=== PATIENT | male | born 1970 | race Caucasian/White ===

== ENCOUNTER 2024-12-08 13:03 | Inpatient (IN) | payer MEDICAID ==
[~2024-12-08] VITALS: Ht 170.2 cm; Wt 59.0 kg
[~2024-12-08 13:03] MED LIST: ONDA-97 GT
[2024-12-08 13:27] LABS: PLATELET COUNT (AUTO) 500 K/uL (150-450); RED BLOOD CELL COUNT(AUTO) 3.83 MIL/uL (4.5-6.0); RED CELL DISTRIBUTION WIDTH 19.2 % (11.5-15.0); WHITE BLOOD COUNT (AUTO) 14.1 K/uL (4.3-11.0)
[2024-12-08 13:38] LABS: CALCIUM, SERUM 10.6 mg/dL (8.5-10.1); CREATININE 0.6 mg/dL (0.6-1.3); SODIUM SERUM 149 mmol/L (136-145); UREA NITROGEN, BLOOD 25 mg/dL (7-18)
[2024-12-08 13:42] LABS: INR 1.1 (0.91-1.10)
[2024-12-08 13:45] LABS: ASPARTATE AMINOTRANSFERASE 24 U/L (15-37); TOTAL PROTEIN, SERUM 7.8 g/dL (6.4-8.2)
[2024-12-08 13:46] LABS: LACTIC ACID 3.6 mmol/L (0.4-2.0)
[2024-12-08] MEDS: IV NS 0.9% 1,000 ML BAG IV ONE (14:00)
[2024-12-08] MEDS: CEFEPIME 1 GM in IV D5W 50 ML IV ONE (14:15)
[2024-12-08] MEDS: VANCOMYCIN 1 GM in IV D5W 250 ML IV ONE (14:50)
[2024-12-08] MEDS ORDERED: ALBU2.5V11 IH (15:03)
[2024-12-08] MEDS ORDERED: NA P133E RC (15:03)
[2024-12-08] MEDS ORDERED: HEPA50008 SQ (15:03)
[2024-12-08] MEDS ORDERED: CLOP75TA15 GT (15:03)
[2024-12-08] MEDS ORDERED: ASCO500T10 GT (15:03)
[2024-12-08] MEDS ORDERED: METF-440 GT (15:03)
[2024-12-08] MEDS ORDERED: FAMO20TA8 GT (15:03)
[2024-12-08] MEDS ORDERED: MULT9LIQ6 GT (15:03)
[2024-12-08] MEDS ORDERED: MAGN400O6 GT (15:03)
[2024-12-08] MEDS ORDERED: AMIN30LI26 GT (15:03)
[2024-12-08] MEDS ORDERED: ATOR40TA GT (15:03)
[2024-12-08] MEDS ORDERED: ACET160L44 GT (15:03)
[2024-12-08 15:13] LABS: APPEARANCE,URINE CLEAR (CLEAR); BLOOD, URINE 3+ Ery/uL (NEGATIVE); LEUKOCYTE ESTERASE ,URINE 1+ (NEGATIVE); NITRITE, URINE NEGATIVE (NEGATIVE); UGLUCOSE NEGATIVE (NEGATIVE)
[2024-12-08 15:25] LABS: ADD URINE CULTURE YES; SQUAMOUS EPITHELIAL CELL,UR 0-2 /HPF (None Seen)
[2024-12-08] MEDS ORDERED: DEXTROSE 50%-WATER 50 ML DISP.SYRIN IV PRN (16:30)
[2024-12-08] MEDS ORDERED: DOSING PER PHARMACY-VANCOMYCIN IV XX PRN (16:30)
[2024-12-08] MEDS ORDERED: MAGNESIUM HYDROXIDE 30 ML UDC GT PRN (16:30)
[2024-12-08] MEDS ORDERED: DOSING PER PHARMACY-CEFEPIME IVPB XX PRN (16:30)
[2024-12-08] MEDS ORDERED: Z GUARD REMEDY 4 OZ OINT TP PRN (16:30)
[2024-12-08] MEDS ORDERED: ONDANSETRON HCL/PF 4 MG/2 ML VIAL IVP PRN (16:30)
[2024-12-08] MEDS: BLOOD SUGAR DIAGNOSTIC 1 EACH STRIP IN SCH (18:00)
[2024-12-08] MEDS: ENOXAPARIN SODIUM 40 MG/0.4 ML DISP.SYRIN SQ SCH (19:25)
[2024-12-08] MEDS: POTASSIUM CHLORIDE 20 MEQ POWDER PACKET PO ONE (19:28)
[2024-12-08] MEDS: IV D5W 1,000 ML IV PRN (19:29)
[2024-12-08] MEDS: INSULIN REGULAR, HUMAN 100 UNIT/ML 3 ML VIAL SQ PRN (19:41)
[2024-12-08 20:00] VITALS: BP 132/83; TEMP 98.8; O2SAT 2
[2024-12-08] MEDS: VANCOMYCIN 500 MG in IV D5W 100ml IV ONE (20:09)
[2024-12-08] MEDS: ATORVASTATIN 40 MG TABLET GT SCH (21:25)
[2024-12-08] MEDS: CEFEPIME 2 GM in IV D5W 100 ML IV SCH (21:26)
[2024-12-09] VITALS: BP 132/83; TEMP 98.8
[2024-12-09 04:00] VITALS: BP 139/93; TEMP 98; O2SAT 2
[2024-12-09] MEDS: VANCOMYCIN 1 GM in IV D5W 250ml IV SCH ×2 (04:13→20:07)
[2024-12-09 07:10] LABS: PLATELET COUNT (AUTO) 333 K/uL (150-450); RED BLOOD CELL COUNT(AUTO) 3.02 MIL/uL (4.5-6.0); RED CELL DISTRIBUTION WIDTH 18.1 % (11.5-15.0); WHITE BLOOD COUNT (AUTO) 19.1 K/uL (4.3-11.0)
[2024-12-09 08:00] VITALS: BP 134/85; TEMP 98.2; O2SAT 2
[2024-12-09 08:05] LABS: CALCIUM, SERUM 9.8 mg/dL (8.5-10.1); CREATININE 0.5 mg/dL (0.6-1.3); PHOSPHORUS 2.1 mg/dL (2.5-4.9); SODIUM SERUM 146.0 mmol/L (136-145); UREA NITROGEN, BLOOD 17.0 mg/dL (7-18)
[2024-12-09] MEDS: ASCORBIC ACID 500 MG TABLET GT SCH (08:20)
[2024-12-09] MEDS: CLOPIDOGREL BISULFATE 75 MG TABLET GT SCH (08:22)
[2024-12-09] MEDS: PANTOPRAZOLE 40 MG/PACK PACK GT SCH (08:22)
[2024-12-09] MEDS: MULTIVIT W/MINERALS 1 TAB TABLET PO SCH (08:22)
[2024-12-09] MEDS: POTASSIUM CHLORIDE 20 MEQ POWDER PACKET GT ONE (09:27)
[2024-12-09 12:00] VITALS: BP 144/82; TEMP 98.8; O2SAT 2
[2024-12-09] MEDS: GLUCERNA 1.2 1,000 ML BOTTLE NG PRN (14:32)
[2024-12-09 16:00] VITALS: BP 137/87; TEMP 97.9; O2SAT 2
[2024-12-09] MEDS ORDERED: VANCOMYCIN 1 GM in IV D5W 250ml IV SCH (16:00)
[2024-12-09] MEDS: NEUTRA PHOS 1 POWD.PACKET GT ONE (17:20)
[2024-12-09 20:00] VITALS: BP 137/118; TEMP 97.7; O2SAT 98
[2024-12-10] VITALS: BP 134/88; TEMP 97.9; O2SAT 98
[2024-12-10 04:00] VITALS: BP 138/99; TEMP 98.7; O2SAT 98
[2024-12-10 06:45] LABS: PLATELET COUNT (AUTO) 394 K/uL (150-450); RED BLOOD CELL COUNT(AUTO) 3.16 MIL/uL (4.5-6.0); RED CELL DISTRIBUTION WIDTH 17.8 % (11.5-15.0); WHITE BLOOD COUNT (AUTO) 12.7 K/uL (4.3-11.0)
[2024-12-10 07:02] LABS: ASPARTATE AMINOTRANSFERASE 17 U/L (15-37); CALCIUM, SERUM 10.0 mg/dL (8.5-10.1); CREATININE 0.6 mg/dL (0.6-1.3); PHOSPHORUS 2.8 mg/dL (2.5-4.9); SODIUM SERUM 143 mmol/L (136-145); TOTAL PROTEIN, SERUM 7.0 g/dL (6.4-8.2); UREA NITROGEN, BLOOD 14 mg/dL (7-18)
[2024-12-10 07:30] VITALS: BP 154/88; TEMP 97.9; O2SAT 100
[2024-12-10 07:45] LABS: LACTIC ACID 2.6 mmol/L (0.4-2.0)
[2024-12-10 08:00] VITALS: BP 154/88; TEMP 97.9; O2SAT 100
[2024-12-10] MEDS: DAKINS QUARTER STRENGTH (0.125%) 480 ML BOTTLE TOP SCH (08:55)
[2024-12-10] MEDS: POTASSIUM CL. PREMIX PERIPHER. 50 ML IV SCH (11:33)
[2024-12-10 12:39] LABS: LACTIC ACID REFLEX 2.3 mmol/L (0.4-1.9)
[2024-12-10 16:00] VITALS: BP 133/88; TEMP 98.4; O2SAT 99
[2024-12-10 20:00] VITALS: BP 155/77; TEMP 98.2; O2SAT 100
[2024-12-10] MEDS: VANCOMYCIN 1 GM in IV D5W 250ml IV SCH (21:01)
[2024-12-10] MEDS: MUPIROCIN OINT 2% 22 GM TUBE NS SCH (21:01)
[2024-12-11 04:00] VITALS: BP 134/93; TEMP 98.1; O2SAT 100
[2024-12-11 05:55] LABS: PLATELET COUNT (AUTO) 359 K/uL (150-450); RED BLOOD CELL COUNT(AUTO) 3.17 MIL/uL (4.5-6.0); RED CELL DISTRIBUTION WIDTH 18.2 % (11.5-15.0); WHITE BLOOD COUNT (AUTO) 11.0 K/uL (4.3-11.0)
[2024-12-11 07:13] LABS: CALCIUM, SERUM 9.5 mg/dL (8.5-10.1); CREATININE 0.4 mg/dL (0.6-1.3); PHOSPHORUS 2.6 mg/dL (2.5-4.9); SODIUM SERUM 138.0 mmol/L (136-145); UREA NITROGEN, BLOOD 11.0 mg/dL (7-18)
[2024-12-11 08:00] VITALS: BP 109/88; TEMP 98.4; O2SAT 99
[2024-12-11 16:00] VITALS: BP 137/95; TEMP 99.5; O2SAT 97
[2024-12-11] MEDS: ACETAMINOPHEN 650 MG/20.3 ML UDC PO PRN (16:23)
[2024-12-11 20:00] VITALS: BP 134/93; TEMP 97.7; O2SAT 100
[2024-12-12 04:00] VITALS: BP 122/87; TEMP 98.4; O2SAT 100
[2024-12-12 06:53] LABS: PLATELET COUNT (AUTO) 406 K/uL (150-450); RED BLOOD CELL COUNT(AUTO) 3.27 MIL/uL (4.5-6.0); RED CELL DISTRIBUTION WIDTH 17.8 % (11.5-15.0); WHITE BLOOD COUNT (AUTO) 10.9 K/uL (4.3-11.0)
[2024-12-12 07:19] LABS: CALCIUM, SERUM 10.2 mg/dL (8.5-10.1); CREATININE 0.5 mg/dL (0.6-1.3); PHOSPHORUS 2.8 mg/dL (2.5-4.9); SODIUM SERUM 141.0 mmol/L (136-145); UREA NITROGEN, BLOOD 11.0 mg/dL (7-18)
[2024-12-12 08:00] VITALS: BP 142/96; TEMP 98.2; O2SAT 100
[2024-12-12 16:00] VITALS: BP 140/96; TEMP 98.2; O2SAT 100
[2024-12-12 20:00] VITALS: BP 154/99; TEMP 99.5; O2SAT 100
[2024-12-13 04:00] VITALS: BP 152/88; TEMP 99.1; O2SAT 100
[2024-12-13 08:00] VITALS: BP 121/82; TEMP 97.9; O2SAT 95
[2024-12-13 08:15] LABS: CALCIUM, SERUM 10.0 mg/dL (8.5-10.1); CREATININE 0.5 mg/dL (0.6-1.3); SODIUM SERUM 142.0 mmol/L (136-145); UREA NITROGEN, BLOOD 13.0 mg/dL (7-18)
[2024-12-13] MEDS ORDERED: ERTA1VIA4 IJ (10:29)
[2024-12-13] MEDS ORDERED: vancomycin IV (10:29)
== END 2024-12-13 16:07 | DRG 710 ==
LOC: ER 13:10 → TELE1 17:37 → MEDSG1 12-10 09:45
PROVIDERS: ADMIT Nurse Practitioner Family; ATTEND Nurse Practitioner Family
PROC: 0QB10ZZ Excision of Sacrum, Open Approach (ICD-10-PCS; principal; 2024-12-10)
PROC: 0QB30ZZ Excision of Left Pelvic Bone, Open Approach (ICD-10-PCS; 2024-12-10)
PROC: 0QB20ZZ Excision of Right Pelvic Bone, Open Approach (ICD-10-PCS; 2024-12-10)
DX: A41.9 Sepsis, unspecified organism (principal); G93.41 Metabolic encephalopathy; L89.154 Pressure ulcer of sacral region, stage 4; L89.314 Pressure ulcer of right buttock, stage 4; E44.0 Moderate protein-calorie malnutrition; N17.9 Acute kidney failure, unspecified; E87.0 Hyperosmolality and hypernatremia; L89.324 Pressure ulcer of left buttock, stage 4; D63.8 Anemia in other chronic diseases classified elsewhere; E83.39 Other disorders of phosphorus metabolism; E83.9 Disorder of mineral metabolism, unspecified; E88.09 Other disorders of plasma-protein metabolism, not elsewhere classified; R65.20 Severe sepsis without septic shock; R13.10 Dysphagia, unspecified; D75.839 Thrombocytosis, unspecified; E11.9 Type 2 diabetes mellitus without complications; E78.5 Hyperlipidemia, unspecified; E86.0 Dehydration; E87.6 Hypokalemia; I10 Essential (primary) hypertension; M89.8X9 Other specified disorders of bone, unspecified site; Z93.1 Gastrostomy status; Z87.01 Personal history of pneumonia (recurrent); J96.10 Chronic respiratory failure, unspecified whether with hypoxia or hypercapnia; I69.354 Hemiplegia and hemiparesis following cerebral infarction affecting left non-dominant side; L98.8 Other specified disorders of the skin and subcutaneous tissue; Z68.20 Body mass index [BMI] 20.0-20.9, adult; Z20.822 Contact with and (suspected) exposure to COVID-19
CPT/HCPCS: 36415; 70450-TC; 71045-TC; 80048-TC; 80053-TC; 80076-TC; 80202-TC; 81001; 82248-TC; 82962-TC; 83605-TC; 83735-TC; 84100-TC; 85025-TC; 85730-TC; 87040-TC; 87081-TC; 87086-TC; 92526; 92611-TC; 97110-TC; 97530-TC; 97535-TC; A4223; A6253; A6403; G0378; J0692; J1650; J1815; J3373; J3480; J7050; J7060; J7070

== ENCOUNTER 2025-03-07 19:34 | Emergency (ER) | payer MEDICAID ==
[~2025-03-07] VITALS: Ht 170.2 cm; Wt 59.0 kg
[~2025-03-07 19:34] MED LIST changes: +ACET160L44 GT; +ALBU2.5V11 IH; +AMIN30LI26 GT; +ASCO500T10 GT; +ATOR40TA GT; +CLOP75TA15 GT; +ERTA1VIA4 IJ; +FAMO20TA8 GT; +HEPA50008 SQ; +MAGN400O6 GT; +METF-440 GT; +MULT9LIQ6 GT; +NA P133E RC; +vancomycin IV
[2025-03-07 20:47] LABS: PLATELET COUNT (AUTO) 591 K/uL (150-450); RED BLOOD CELL COUNT(AUTO) 3.43 MIL/uL (4.5-6.0); RED CELL DISTRIBUTION WIDTH 19.1 % (11.5-15.0); WHITE BLOOD COUNT (AUTO) 13.8 K/uL (4.3-11.0)
[2025-03-07 20:56] LABS: CALCIUM, SERUM 10.3 mg/dL (8.5-10.1); CREATININE 0.6 mg/dL (0.6-1.3); SODIUM SERUM 143.0 mmol/L (136-145); UREA NITROGEN, BLOOD 29.0 mg/dL (7-18)
[2025-03-07 21:21] LABS: APPEARANCE,URINE SLIGHTLY CLOUDY (CLEAR); BLOOD, URINE 3+ Ery/uL (NEGATIVE); LEUKOCYTE ESTERASE ,URINE 3+ (NEGATIVE); NITRITE, URINE NEGATIVE (NEGATIVE); UGLUCOSE NEGATIVE (NEGATIVE)
[2025-03-07 21:24] LABS: INR 1.09 (0.91-1.10)
[2025-03-07 21:39] LABS: ADD URINE CULTURE YES
[2025-03-07 21:40] LABS: SQUAMOUS EPITHELIAL CELL,UR Few /HPF (None Seen); URINE AMORPHOUS URATE Few /HPF (None Seen); YEAST,URINE Few /HPF (None Seen)
[2025-03-07] MEDS ORDERED: CEPH250S GT (21:40)
[2025-03-07] MEDS ORDERED: CEPHALEXIN MONOHYDRATE 500 MG CAPSULE PO ONE (21:43)
[2025-03-07] MEDS: CEPHALEXIN MONOHYDRATE 500 MG CAPSULE PO ONE (22:03)
[2025-03-08 00:38] VITALS: BP 138/98; TEMP 98; O2SAT 98
== END 2025-03-08 00:40 | disposition home or self-care (01) ==
LOC: ER 19:36
DX: N39.0 Urinary tract infection, site not specified (principal); R31.9 Hematuria, unspecified; E11.9 Type 2 diabetes mellitus without complications; I11.9 Hypertensive heart disease without heart failure; Z79.84 Long term (current) use of oral hypoglycemic drugs; Z86.73 Personal history of transient ischemic attack (TIA), and cerebral infarction without residual deficits
CPT/HCPCS: 36415; 80048-TC; 81001; 85025-TC; 85730-TC; 87086-TC